=== PATIENT | female | born 1990 | race African-American/Black ===

== ENCOUNTER 2019-01-08 08:30 | Emergency (ER) | payer OTHER ==
[~2019-01-08] VITALS: Ht 160 cm; Wt 49.9 kg
[~2019-01-08 08:30] MED LIST: NOHOMEMEDICATIONS; PROTONIX 20 MG20 M1 PO
[2019-01-08 08:39] VITALS: BP 118/78
== END 2019-01-08 09:11 | disposition home or self-care (01) ==
LOC: ER 08:30
DX: S80.02XA Contusion of left knee, initial encounter (principal); W01.0XXA Fall on same level from slipping, tripping and stumbling without subsequent striking against object, initial encounter; Y92.89 Other specified places as the place of occurrence of the external cause; Y93.89 Activity, other specified; Y99.8 Other external cause status